=== PATIENT | female | born 1950 | race Caucasian/White ===

== ENCOUNTER 2022-09-16 16:41 | Emergency (ER) | payer OTHER ==
[2022-09-16 16:54] VITALS: BP 152/100; PULSE 81; RESP 18; TEMP 98.2; BMI 27.3
== END 2022-09-16 21:37 | disposition home or self-care (01) ==
LOC: JER 16:41
DX: H57.12 Ocular pain, left eye (principal); H02.843 Edema of right eye, unspecified eyelid
CPT/HCPCS: 70450-TC; 70486-TC; 99284-25

== ENCOUNTER 2023-02-27 11:33 | Emergency (ER) | payer OTHER ==
[2023-02-27 11:45] VITALS: BP 196/117; PULSE 83; RESP 18; TEMP 98.3; BMI 27.7
[2023-02-27] MEDS ORDERED: dilTIAZem HCL 60 MG TABLET PO ONE (12:45)
== END 2023-02-27 15:20 | disposition home or self-care (01) ==
LOC: JER 11:33
DX: I10 Essential (primary) hypertension (principal); R51.9 Headache, unspecified
CPT/HCPCS: 70450-TC; 93005; 93010; 99284-25